=== PATIENT | male | born 1980 | race Hispanic/Latino ===

== ENCOUNTER 2023-03-03 14:23 | Emergency (ER) | payer SELFPAY ==
[2023-03-03] MEDS ORDERED: Boostrix 0.5 ML (Tdap) VIAL (>/=7 yrs of age) ONE (14:43)
[2023-03-03] MEDS ORDERED: Ondansetron PF 4 MG/2 ML Vial ONE (15:16)
[2023-03-03] MEDS ORDERED: Morphine 4 MG/ML VIAL ONE (15:16)
[2023-03-03 17:17] LABS: #Eosinphils 0.1 thou/uL (0.0-0.7); #Monocytes 0.7 thou/uL (0.11-0.59); #Neutrophils 6.2 thou/uL (1.40-6.50); %Basophils 0.5 % (0.0-1.0); %Eosinophils 0.8 % (0.0-10.0); %Lymphocytes 19.6 % (21.0-51.0); %Monocytes 7.9 % (0.0-10.0); Hematocrit 41.8 % (42.0-52.0); Hemoglobin 14.6 g/dL (14.0-18.0); Mean Corpuscular HGB CONC 34.9 g/dL (32.0-36.0); Mean Corpuscular Hemoglobin 30.3 pg (27.0-31.0); Mean Corpuscular Volume 86.7 fl (78.0-98.0); Mean Platelet Volume 9.2 fL (7.4-10.4); Platelet Count 316 10x3/uL (130-400); RBC Distribution Width 11.6 % (11.5-14.5); Red Blood Cell (RBC) Count 4.82 mill/uL (4.70-6.10); White Blood Cell (WBC) Count 8.8 10x3/uL (4.8-10.8)
[2023-03-03 17:47] LABS: Albumin 4.6 g/dL (3.5-5.0)
[2023-03-03 17:49] LABS: Calcium 9.2 mg/dL (7.8-10.44); Chloride 106 mmol/L (98-107); Potassium 4.2 mmol/L (3.5-5.1); Sodium 139 mmol/L (136-145)
[2023-03-03 17:50] LABS: Globulin 2.5 g/dL (2.4-3.5); Glucose 90 mg/dL (70-105); Protein, Total 7.1 g/dL (6.0-8.3)
[2023-03-03 17:51] LABS: Anion Gap 13 mmol/L (10-20); Carbon Dioxide 24 mmol/L (22-29)
[2023-03-03 17:53] LABS: Alkaline Phosphatase 68 U/L (40-110); Calc. Creatinine Clearance 0 mL/min (70-130); Estimated GFR 109
[2023-03-03 17:54] LABS: BUN (Urea Nitrogen) 12 mg/dL (8.9-20.6)
[2023-03-03 17:55] LABS: AST (SGOT) 22 U/L (5-34)
[2023-03-03 17:56] LABS: ALT (SGPT) 30 U/L (8-55); CK (CPK) 120 U/L (30-200)
[2023-03-03 18:08] LABS: Bilirubin, Total 0.9 mg/dL (0.2-1.2)
== END 2023-03-03 19:51 | disposition home or self-care (01) ==
LOC: ERS 14:23
DX: S99.922A Unspecified injury of left foot, initial encounter (principal); Z23 Encounter for immunization; W31.83XA Contact with special construction vehicle in stationary use, initial encounter
CPT/HCPCS: 36415; 80053; 82550; 85025; 90471; 90715; 96374; 96375; J2270; J2405

== ENCOUNTER 2025-04-13 16:46 | Emergency (ER) | payer BC ==
[2025-04-13 18:02] LABS: #Basophils 0.03 10x3/uL (0.0-0.2); #Eosinophils 0.12 10x3/uL (0.0-0.7); #Monocytes 0.61 10x3/uL (0.11-0.59); #Neutrophils 4.92 10x3/uL (1.40-6.50); %Basophils 0.4 % (0.0-1.0); %Eosinophils 1.6 % (0.0-10.0); %Lymphocytes 23.8 % (21.0-51.0); %Monocytes 8.2 % (0.0-10.0); %Neutrophils 65.7 % (42.0-75.0); Hematocrit 43.3 % (42.0-52.0); Hemoglobin 15.3 g/dL (14.0-18.0); Mean Corpuscular Hemoglobin 29.8 pg (27.0-31.0); Mean Corpuscular Volume 84.2 fL (78.0-98.0); Platelet Count 324 10x3/uL (130-400); Red Blood Cell (RBC) Count 5.14 mill/uL (4.70-6.10); White Blood Cell (WBC) Count 7.48 10x3/uL (4.8-10.8)
[2025-04-13 18:19] LABS: ALT (SGPT) 36 U/L (Less than 45); AST (SGOT) 34 U/L (11-34); Albumin 4.3 g/dL (3.1-4.5); Alkaline Phosphatase 89 U/L (40-110); Anion Gap 14 mmol/L (10-20); BUN (Urea Nitrogen) 12 mg/dL (8.9-20.6); Bilirubin, Total 0.5 mg/dL (0.3-1.2); Calc. Creatinine Clearance 0 mL/min (70-130); Calcium 9.2 mg/dL (7.8-10.44); Carbon Dioxide 25 mmol/L (22-29); Chloride 104 mmol/L (98-107); Globulin 3.8 g/dL (2.4-3.5); Glucose 115 mg/dL (70-105); Potassium 4.1 mmol/L (3.5-5.1); Sodium 139 mmol/L (136-145)
[2025-04-13] MEDS ORDERED: Acetaminophen 500 MG TAB ONE (19:07)
== END 2025-04-13 19:35 | disposition home or self-care (01) ==
LOC: ERS 16:46
DX: R07.89 Other chest pain (principal); R51.9 Headache, unspecified
CPT/HCPCS: 71045; 80053; 84484; 85025; 93005